=== PATIENT | male | born 1945 | race Caucasian/White ===

== ENCOUNTER → 2018-06-28 | Outpatient (CLI) | payer MEDICARE ==
[2016-12-04 15:56] VITALS: BMI 36.2
[~2018-06-28] MED LIST: AMLO-1 PO; BEN20 PO; BENA1TAB58 PO; CEPH500T7 PO; CHOL10005 PO; HCTZ25 PO; RIVA20TA PO; [UNRECOGNIZED DRUG - OTHER]
[2018-06-28 10:41] LABS: LDL CHOLESTEROL 84 mg/dl
== END ==
LOC: LAB 09:03
PROVIDERS: ATTEND Internal Medicine Cardiovascular Disease
DX: I48.0 Paroxysmal atrial fibrillation (principal); I10 Essential (primary) hypertension
CPT/HCPCS: 36415; 82040; 82247; 82310; 82374; 82435; 82465; 82565; 82947; 83718; 84075; 84132; 84155; 84295; 84450; 84460; 84478; 84520